=== PATIENT | female | born 1985 | race Caucasian/White ===

== ENCOUNTER 2021-06-22 14:11 | Emergency (ER) | payer OTHER ==
[~2021-06-22] VITALS: Ht 165.1 cm; Wt 54.4 kg
--- NOTE | 2021-06-22 14:15 | NUR ---
[id number], CAME TO ER C/O WORSENING LOWER BACK PAIN. DENIES RECENT FALL OR INJURY. AWAITING MD FOR EVAL.
--- NOTE | 2021-06-22 14:22 | NUR ---
DR KEEN AT FOR EVAL.
[2021-06-22] MEDS ORDERED: ACETAMINOPHEN 325 MG TABLET ONE (14:51)
[2021-06-22] MEDS ORDERED: MORPHINE SULFATE INJ 4 MG/ML DISP.SYRIN ONE (14:51)
[2021-06-22] MEDS ORDERED: CYCLOBENZAPRINE 10 MG TABLET PO PRN (15:00)
[2021-06-22] MEDS ORDERED: MORPHINE SULFATE INJ 2 MG/ML DISP.SYRIN IM ONE (15:00)
[2021-06-22] MEDS ORDERED: ACETAMINOPHEN 325 MG TABLET PO PRN (15:00)
[2021-06-22] MEDS ORDERED: ASPIRIN 81 MG TAB.CHEW PO ONE (15:00)
--- NOTE | 2021-06-22 15:09 | NUR ---
SOME LABS AND MEDICATIONS CANCELLED, DUE TO MD ERROR.
[2021-06-22] MEDS ORDERED: CYCLOBENZAPRINE 10 MG TABLET ONE (15:18)
--- NOTE | 2021-06-22 15:22 | NUR ---
PATIENT AMBULATORY WITH STEADY GAIT. NO DISTRESS NOTED.
[2021-06-22] MEDS ORDERED: CYCLOBENZAPRINE 10 MG TABLET PO ONE (15:30)
[2021-06-22] MEDS ORDERED: CYCL5TAB PO ×3 (15:32→15:48)
[2021-06-22 15:56] VITALS: BP 112/58
--- NOTE | 2021-06-22 15:56 | NUR ---
Patient discharged to home in stable condition. Written and verbal after care instructions given. Patient verbalizes understanding of instruction.
== END 2021-06-22 15:57 | disposition home or self-care (01) ==
LOC: ER 14:17
DX: M54.42 Lumbago with sciatica, left side (principal); F17.200 Nicotine dependence, unspecified, uncomplicated; Z90.89 Acquired absence of other organs; Z98.890 Other specified postprocedural states; Z79.899 Other long term (current) drug therapy
CPT/HCPCS: 84703; 96372; 99283; J2270